=== PATIENT | male | born 1965 | race Caucasian/White ===

== ENCOUNTER → 2017-01-10 | Outpatient (CLI) | payer BC ==
[~2017-01-10] MED LIST: CIPRO500 MG PO; CIPROFLOXACIN500 MG PO; FLAGYL500 MG PO; LISINOPRIL AND1 TA2 PO; PRILOSEC20 MG PO; VICO75300 PO
== END | disposition home or self-care (01) ==
LOC: RAD 09:35
DX: M54.5 Low back pain (principal)